=== PATIENT | female | born 1980 | race Caucasian/White ===

== ENCOUNTER 2021-07-31 04:23 | Day surgery (SDC) | payer BC ==
[2021-07-29 17:43] VITALS: BMI 25.6
[2021-07-31] MEDS ORDERED: PROPOFOL 20 ML ONE ×2 (15:19→15:26)
[2021-07-31] MEDS ORDERED: MIDAZOLAM HCL 2 MG/2 ML SINGLE DOSE VIAL ONE (15:19)
[2021-07-31] MEDS ORDERED: CLINDAMYCIN PHOSPHATE 900 MG/6 ML VIAL IVPB ONE (15:26)
[2021-07-31] MEDS ORDERED: CLINDAMYCIN PHOSPHATE 600 MG/4 ML VIAL IVPB ONE (15:26)
[2021-07-31] MEDS ORDERED: SUCCINYLCHOLINE CHLORIDE 200 MG/10 ML SYRINGE ONE (15:28)
[2021-07-31] MEDS ORDERED: CLINDAMYCIN PHOSPHATE 600 MG/4 ML VIAL ONE (15:39)
[2021-07-31] MEDS ORDERED: ACETAMINOPHEN 500 MG TABLET (FP) PO PRN (17:09)
[2021-07-31 18:12] VITALS: BP 134/74; PULSE 70; TEMP 97.6
== END 2021-07-31 18:20 | disposition home or self-care (01) ==
LOC: JASU-SURG 04:23
PROVIDERS: ATTEND Obstetrics & Gynecology
PROC: 0UDB8ZZ Extraction of Endometrium, Via Natural or Artificial Opening Endoscopic (ICD-10-PCS; principal; 2021-07-31 15:20)
DX: N92.0 Excessive and frequent menstruation with regular cycle (principal)
CPT/HCPCS: 86850; 86900; 86901; 88305-TC; 94760

== ENCOUNTER 2024-05-31 20:14 | Emergency (ER) | payer BC, OTHER ==
[2024-05-31 20:23] VITALS: BP 131/84; PULSE 86; RESP 18; TEMP 98.2; BMI 26.5
[2024-05-31 21:01] LABS: BASO % 0.5 % (0-2.0); HEMOGLOBIN 12.5 GM/dL (10.7-15.3); LYMPH % 21.3 % (8-40); MCH 29.5 pg (25.7-33.7); MCHC 33.7 g/dl (32.0-36.0); MEAN CELL VOLUME 87.5 fl (80-96); MEAN PLT VOLUME 9.2 fl (7.5-11.1); MONO % 5.3 % (3.8-10.2); NEUT % 70.9 % (42.8-82.8); PLATELET COUNT 196 10^3/uL (134-434); RBC 4.23 M/mm3 (3.60-5.2); RDW 14.9 % (11.6-15.6); WHITE BLOOD COUNT 12.8 K/mm3 (4.0-10.0)
[2024-05-31 21:08] LABS: INR 0.87 (0.83-1.09); PROTHROMBIN TIME (PATIENT) 10.1 SEC (9.7-13.0)
[2024-05-31 21:11] LABS: ACTIVATED PTT 26.9 SECONDS (25.2-36.5)
[2024-05-31 21:22] LABS: POTASSIUM 3.9 mmol/L (3.5-5.1)
[2024-05-31 21:24] LABS: CALCIUM 9.1 mg/dL (8.5-10.1)
[2024-05-31 21:25] LABS: ALBUMIN 3.6 g/dl (3.4-5.0); MAGNESIUM 2.1 mg/dL (1.8-2.4)
[2024-05-31 21:28] LABS: CREATININE 0.7 mg/dL (0.55-1.3)
[2024-05-31 21:30] LABS: BILIRUBIN,TOTAL 0.2 mg/dL (0.2-1); TOT PROT 6.5 g/dl (6.4-8.2)
[2024-05-31] MEDS ORDERED: ASPIRIN 325 MG TABLET ONE (21:47)
[2024-05-31] MEDS: ASPIRIN 81 MG CHEWABLE TABLETS PO ONE (21:49)
== END 2024-05-31 23:18 | disposition home or self-care (01) ==
LOC: JER 20:14
DX: R94.31 Abnormal electrocardiogram [ECG] [EKG] (principal); R07.9 Chest pain, unspecified; R21 Rash and other nonspecific skin eruption; Z20.822 Contact with and (suspected) exposure to COVID-19
CPT/HCPCS: 0241U-QW; 36415; 71045-TC-FY; 80053; 83735; 84484; 85025; 85610; 85730; 93005; 93010; 99285-25